=== PATIENT | female | born 1990 | race African-American/Black ===

== ENCOUNTER 2017-04-25 16:48 | Emergency (ER) | payer SELFPAY ==
[2017-04-25] MEDS ORDERED: Fluorescein Opthalmic Strip ONE (17:09)
[2017-04-25] MEDS ORDERED: Proparacaine 0.5% Opth 15 ML BOT ONE (17:09)
== END 2017-04-25 17:27 | disposition home or self-care (01) ==
LOC: SCSER 16:48
DX: H10.31 Unspecified acute conjunctivitis, right eye (principal); F17.210 Nicotine dependence, cigarettes, uncomplicated
CPT/HCPCS: 99282